=== PATIENT | male | born 1965 | race Caucasian/White ===

== ENCOUNTER 2023-09-27 06:29 | Inpatient (IN) | payer OTHER, BC ==
[~2023-09-27] VITALS: Ht 180.3 cm; Wt 100.4 kg
[2023-09-27 06:38] VITALS: BP 152/83; O2SAT 100
[2023-09-27 06:45] VITALS: BP 148/90
[2023-09-27 07:03] LABS: BASO # 0.1 10^3/uL (0.0-0.2); BASO % 1.4 % (0.0-1.0); EOS # 0.3 10^3/uL (0.0-0.5); EOS % 4.1 % (0.0-3.0); HEMATOCRIT 45.5 % (42.0-52.0); HEMOGLOBIN 15.4 g/dl (13.5-17.5); LYMPH # 1.5 10^3/uL (1.5-5.0); LYMPH % 22.9 % (24.0-44.0); MEAN CORPUSCULAR HEMOGLOBIN 31.3 pg (27.0-33.0); MEAN CORPUSCULAR HGB CONC 33.8 g/dl (32.0-36.5); MEAN CORPUSCULAR VOLUME 92.5 fl (80.0-96.0); MONO # 0.4 10^3/uL (0.0-0.8); MONO % 6.6 % (2.0-8.0); NEUTROPHILS # 4.3 10^3/uL (1.5-8.5); NEUTROPHILS % 64.5 % (36.0-66.0); PLATELET COUNT, AUTOMATED 291 10^3/uL (150-450); RED BLOOD COUNT 4.92 10^6/uL (4.30-6.10); WHITE BLOOD COUNT 6.6 10^3/uL (4.0-10.0)
[2023-09-27 07:18] LABS: INR 1.03; PARTIAL THROMBOPLASTIN TIME 28.2 SECONDS (24.8-34.2); PROTHROMBIN TIME 13.2 SECONDS (12.5-14.5)
[2023-09-27 07:19] LABS: BLOOD UREA NITROGEN 14 MG/DL (9-23); CARBON DIOXIDE LEVEL 27 MMOL/L (20-31); CHLORIDE LEVEL 105 MMOL/L (98-107); CK-MB VALUE MASS < 1.0 NG/ML (<3.6); CPK CREATINE PHOSPHOKINASE 179 U/L (46-171); GLOMERULAR FILTRATION RATE > 60.0 (>56); GLUCOSE, FASTING 100 MG/DL (60-100); MB/CK RELATIVE INDEX 0.55 (< OR =4); POTASSIUM SERUM 4.1 MMOL/L (3.5-5.1); SODIUM LEVEL 137 MMOL/L (136-145)
[2023-09-27 07:22] LABS: THYROID STIMULATING HORMONE 2.113 uIU/ML (0.55-4.78)
[2023-09-27] MEDS ORDERED: ISOVUE-370 76% 100ML VIAL As Ordered ONE (07:25)
[2023-09-27] MEDS ORDERED: HOME MED LIST COMPLETE! XX SCH (08:25)
[2023-09-27 08:49] LABS: CK-MB VALUE MASS < 1.0 NG/ML (<3.6)
[2023-09-27 08:54] LABS: CPK CREATINE PHOSPHOKINASE 174 U/L (46-171); MB/CK RELATIVE INDEX 0.57 (< OR =4)
[2023-09-27] MEDS ORDERED: ONDANSETRON 4MG 2ML VIAL As Ordered ONE (10:44)
[2023-09-27] MEDS: ONDANSETRON 4MG 2ML VIAL IV ONE (11:12)
[2023-09-27 16:50] VITALS: BP 148/82
[2023-09-27] MEDS ORDERED: ONDANSETRON 4MG 2ML VIAL IV PRN (16:50)
[2023-09-27] MEDS: amLODIPine 5 MG TAB PO ONE (16:50)
[2023-09-27 18:02] VITALS: BP 148/82; TEMP 98.6; O2SAT 97
[2023-09-27 18:05] LABS: CHOLESTEROL RISK RATIO 5.23 (<5); HDL CHOLESTEROL 41.3 MG/DL (>40); LDL CHOLESTEROL 159.9 MG/DL (<100); NON-HDL-C 174.7 MG/DL
[2023-09-27 18:08] LABS: TOTAL 25(OH) VITAMIN D 30.6 NG/ML (20.0-100.0)
[2023-09-27] MEDS: ASPIRIN 81MG CHEW TABLET PO ONE (18:11)
[2023-09-27] MEDS: PANTOPRAZOLE 40MG TAB (PROTONIX) PO ONE (18:12)
[2023-09-27 18:16] LABS: HEMOGLOBIN A1c 5.1 % (4.0-6.0)
[2023-09-27 21:40] VITALS: BP 145/84; TEMP 98.4; O2SAT 96
[2023-09-27] MEDS: ACETAMINOPHEN TAB 650MG DOSE (2X325MG) PO PRN (21:40)
[2023-09-27] MEDS: methocarbamoL 500 MG TAB PO PRN (23:17)
[2023-09-27] MEDS: IBUPROFEN 600MG TAB PO PRN (23:17)
[2023-09-27] MEDS: LIDOCAINE 5% (LIDODERM) PATCH TD SCH ×2 (23:18→23:19)
[2023-09-28] VITALS (7 sets, daily range): BP systolic 104–131; BP diastolic 71–82; TEMP 97.3–98.1; O2SAT 95–98
[2023-09-28 06:14] LABS: HEMATOCRIT 43.7 % (42.0-52.0); HEMOGLOBIN 15.3 g/dl (13.5-17.5); MEAN CORPUSCULAR HEMOGLOBIN 31.7 pg (27.0-33.0); MEAN CORPUSCULAR VOLUME 90.5 fl (80.0-96.0); PLATELET COUNT, AUTOMATED 302 10^3/uL (150-450); RED BLOOD COUNT 4.83 10^6/uL (4.30-6.10); WHITE BLOOD COUNT 6.8 10^3/uL (4.0-10.0)
[2023-09-28 06:46] LABS: ALBUMIN 3.2 G/DL (3.2-5.2); ALKALINE PHOSPHATASE 74 U/L (46-116); ALT/SGPT 20 U/L (7.0-40); AST/SGOT 9 U/L (<34); BILIRUBIN,TOTAL 0.8 MG/DL (0.3-1.2); BLOOD UREA NITROGEN 11 MG/DL (9-23); CALCIUM LEVEL 8.7 MG/DL (8.5-10.1); CARBON DIOXIDE LEVEL 24 MMOL/L (20-31); CHLORIDE LEVEL 109 MMOL/L (98-107); GLOMERULAR FILTRATION RATE > 60.0 (>56); GLUCOSE, FASTING 105 MG/DL (60-100); SODIUM LEVEL 140 MMOL/L (136-145); TOTAL PROTEIN 6.6 G/DL (5.7-8.2)
[2023-09-28] MEDS: PANTOPRAZOLE 40MG TAB (PROTONIX) PO SCH (09:00)
[2023-09-28] MEDS: NS 1,000 ML IV ONE (14:44)
[2023-09-28 15:20] LABS: MAGNESIUM LEVEL 2.3 MG/DL (1.8-2.4)
[2023-09-28] MEDS: IBUPROFEN 600MG TAB PO SCH (15:27)
[2023-09-28] MEDS: ASPIRIN 81MG ENTERIC TABLET PO SCH (15:30)
[2023-09-28] MEDS: ATORVASTATIN 20 MG TAB PO SCH (21:33)
[2023-09-29 06:14] VITALS: BP 135/81; TEMP 97.3; O2SAT 98
[2023-09-29 06:14] LABS: BASO # 0.1 10^3/uL (0.0-0.2); BASO % 1.2 % (0.0-1.0); EOS # 0.3 10^3/uL (0.0-0.5); EOS % 4.6 % (0.0-3.0); HEMATOCRIT 43.4 % (42.0-52.0); HEMOGLOBIN 14.7 g/dl (13.5-17.5); LYMPH # 2.2 10^3/uL (1.5-5.0); LYMPH % 30.2 % (24.0-44.0); MEAN CORPUSCULAR HEMOGLOBIN 31.1 pg (27.0-33.0); MEAN CORPUSCULAR HGB CONC 33.9 g/dl (32.0-36.5); MEAN CORPUSCULAR VOLUME 91.9 fl (80.0-96.0); MONO # 0.6 10^3/uL (0.0-0.8); MONO % 8.7 % (2.0-8.0); NEUTROPHILS % 55.2 % (36.0-66.0); PLATELET COUNT, AUTOMATED 286 10^3/uL (150-450); RED BLOOD COUNT 4.72 10^6/uL (4.30-6.10); WHITE BLOOD COUNT 7.3 10^3/uL (4.0-10.0)
[2023-09-29 06:37] LABS: BLOOD UREA NITROGEN 12 MG/DL (9-23); CALCIUM LEVEL 8.5 MG/DL (8.5-10.1); CARBON DIOXIDE LEVEL 24 MMOL/L (20-31); CHLORIDE LEVEL 109 MMOL/L (98-107); CREATININE FOR GFR 0.87 MG/DL (0.70-1.30); GLOMERULAR FILTRATION RATE > 60.0 (>56); GLUCOSE, FASTING 101 MG/DL (60-100); POTASSIUM SERUM 4.4 MMOL/L (3.5-5.1); SODIUM LEVEL 139 MMOL/L (136-145)
[2023-09-29 12:08] VITALS: BP 132/78; TEMP 97.3; O2SAT 97
[2023-09-29 15:40] VITALS: BP 129/76; TEMP 98.3; O2SAT 97
[2023-09-29 19:52] VITALS: BP 123/79; TEMP 98.1; O2SAT 96
[2023-09-30] VITALS (7 sets, daily range): BP systolic 113–132; BP diastolic 62–80; TEMP 97.4–98.4; O2SAT 95–98
[2023-09-30 06:28] LABS: BLOOD UREA NITROGEN 11 MG/DL (9-23); CARBON DIOXIDE LEVEL 25 MMOL/L (20-31); CHLORIDE LEVEL 107 MMOL/L (98-107); CREATININE FOR GFR 0.92 MG/DL (0.70-1.30); GLOMERULAR FILTRATION RATE > 60.0 (>56); GLUCOSE, FASTING 98 MG/DL (60-100); MAGNESIUM LEVEL 2.1 MG/DL (1.8-2.4); POTASSIUM SERUM 4.2 MMOL/L (3.5-5.1); SODIUM LEVEL 139 MMOL/L (136-145)
[2023-10-01 04:11] VITALS: BP 118/72; TEMP 98.6; O2SAT 94
[2023-10-01 06:30] LABS: BLOOD UREA NITROGEN 15 MG/DL (9-23); CARBON DIOXIDE LEVEL 25 MMOL/L (20-31); CHLORIDE LEVEL 106 MMOL/L (98-107); GLOMERULAR FILTRATION RATE > 60.0 (>56); GLUCOSE, FASTING 97 MG/DL (60-100); MAGNESIUM LEVEL 2.2 MG/DL (1.8-2.4); POTASSIUM SERUM 4.4 MMOL/L (3.5-5.1); SODIUM LEVEL 139 MMOL/L (136-145)
[2023-10-01 07:18] VITALS: BP 118/76; TEMP 97.8; O2SAT 94
[2023-10-01 12:05] VITALS: BP 122/74; TEMP 98.3; O2SAT 96
[2023-10-01] MEDS ORDERED: ATOR1TAB21 PO (13:24)
[2023-10-01] MEDS ORDERED: ASPI81TAEC PO (13:24)
== END 2023-10-01 14:27 | disposition home or self-care (01) | DRG 201 ==
LOC: M ED 06:29 → M ED INP 16:44 → M MSPAV 18:03 → UNDODISIN 09-29 11:51 → M PCU 09-29 12:08
PROVIDERS: ADMIT Hospitalist; ATTEND General Practice
DX: R00.1 Bradycardia, unspecified (principal); M48.02 Spinal stenosis, cervical region; I10 Essential (primary) hypertension; I95.1 Orthostatic hypotension; M19.90 Unspecified osteoarthritis, unspecified site; R51.9 Headache, unspecified; S01.01XA Laceration without foreign body of scalp, initial encounter; E78.5 Hyperlipidemia, unspecified; W17.89XA Other fall from one level to another, initial encounter; I49.5 Sick sinus syndrome

== ENCOUNTER 2024-05-07 06:32 | Day surgery (SDC) | payer BC ==
[~2024-05-07] VITALS: Ht 180.3 cm; Wt 113.9 kg
[~2024-05-07 06:32] MED LIST: ASPI81TAEC PO; ATOR1TAB21 PO; LOSA25TA13 PO; PHENYLEPHRINE 10% OPHTH SOL 5ML OS PRN
[2024-05-07] MEDS: OFLOXACIN 0.3 % (OCUFLOX) OPTH SOL 5ML OS ONE (07:10)
[2024-05-07] MEDS: LIDOCAINE 3.5 % 1ML OPHTH TOPICAL GEL OU ONE (07:23)
[2024-05-07] MEDS: PHENYLEPHRINE 2.5% OPHTH SOL 2ML OS SCH (07:23)
[2024-05-07] MEDS: TROPICAMIDE 1% OPHTH SOLN 15ML OS SCH (07:23)
[2024-05-07] MEDS: CYCLOPENTOLATE 1% OPHTH SOLN 2ML BTL OS SCH (07:23)
[2024-05-07] MEDS ORDERED: MIDAZOLAM INJ 2MG/2ML VIAL As Ordered ONE (07:52)
[2024-05-07] MEDS ORDERED: fentaNYL 100 MCG/2 ML INJECTION As Ordered ONE (07:52)
[2024-05-07] MEDS: CEFUROXIME 1MG/0.1ML INTRACAMERAL INJ As Ordered ONE (09:27)
[2024-05-07] MEDS: BSS IRRIG/VANCO(10MG)/TOBRA(5MG)/EPINEPH(1:1000-0.5CC)500ML BAG-ORONLY As Ordered ONE (09:27)
[2024-05-07] MEDS: LIDOCAINE 1% SDV 5ML VIAL As Ordered ONE (09:27)
[2024-05-07 09:38] VITALS: BP 130/81; TEMP 96.9; O2SAT 95
== END 2024-05-07 09:55 | disposition home or self-care (01) ==
LOC: M SDC 06:32
PROVIDERS: ATTEND Ophthalmology
DX: H25.12 Age-related nuclear cataract, left eye (principal); I10 Essential (primary) hypertension; E78.5 Hyperlipidemia, unspecified; Z79.82 Long term (current) use of aspirin; Z79.899 Other long term (current) drug therapy
CPT/HCPCS: 66984; J0697; J2250; J3010; V2632